=== PATIENT | female | born 2000 | race Caucasian/White ===

== ENCOUNTER 2020-10-10 13:13 | Emergency (ER) | payer OTHER, SELFPAY ==
--- NOTE | ~2020-10-10 | XR_ITS ---
EXAMINATION: XR chest 2V 10/10/2020 14:05 INDICATION: Congestion and wheezing PROCEDURE: 2 view chest COMPARISON: 03/25/2020 FINDINGS: The lungs are clear. The cardiomediastinal silhouette is within normal limits. There are no pleural effusions. There is no pneumothorax suspected. IMPRESSION: 1: NO ACUTE CARDIOPULMONARY DISEASE. Reviewed, dictated and finalized at location A.
[2020-10-10 13:21] VITALS: BP 111/81; PULSE 110; RESP 18; TEMP 37.5; O2SAT 98
--- NOTE | 2020-10-10 19:20 | ED.URI ---
HPI - URI/Sore Throat General Chief Complaint: Upper Respiratory Infection Stated Complaint: Congestion Time Seen by Provider: 10/10/20 13:33 Source: patient and RN notes reviewed Mode of arrival: ambulatory Limitations: no limitations History of Present Illness HPI Narrative: Patient presents today complaining of 2 to 3-day history of productive cough, shortness of breath, congestion, rhinorrhea. Fever up to 101 since last night. Denies sore throat, nausea, vomiting, diarrhea. Son was diagnosed with RSV 3 days ago. She has been taking DayQuil and NyQuil with mild relief. She has not been vaccinated against COVID-19. MD elicited complaint: cough Related Data Home Medications Medication Instructions Recorded Confirmed PNV cmb#95-ferrous fumarate-FA 1 tablet PO DAILY 01/17/19 01/31/19 [] albuterol sulfate [ProAir HFA] INHALATION 03/15/19 norethindrone-e.estradiol-iron tablet 03/15/19 [Brando Fe 03/25 (28)] Allergies Allergy/AdvReac Type Severity Reaction Status Date / Time No Known Allergies Allergy Verified 10/10/20 13:37 Review of Systems Review of Systems: CONSTITUTIONAL: Denies body aches, chills, or sweats.+ Fever EYES: Denies visual changes, redness, or discharge. ENT: Denies otalgia.+ Rhinorrhea, congestion CARDIOVASCULAR: Denies chest pain, palpitations, or edema. RESPIRATORY: + Cough, shortness of breath GASTROINTESTINAL: Denies abdominal pain, nausea, vomiting, or diarrhea. GENITOURINARY: Denies dysuria or hematuria. SKIN: Denies rash, itching, or wounds. MUSCULOSKELETAL: Denies back pain, joint pain, or myalgia. NEUROLOGIC: Denies headache, numbness, tingling, or weakness. PSYCH: Denies depression or anxiety. [facility] Surgical History Surgical History History of tonsillectomy Family History Family History Mother Hypothyroid Social History Social History Smoking status: Never smoker Second hand tobacco smoke exposure: No Substance use: never Gender identity (if verbalized by the patient): Female Spiritual care concerns: No Comments At time of signature, I have reviewed and agree with nursing past medical, surgical, social and family history unless otherwise noted. Please see nursing chart for further information. There is no relevant family history pertinent to the presenting complaint Exam Narrative: GENERAL: Well-appearing, well-nourished, and in no acute distress. HEAD: Normocephalic, atraumatic. EYES: EOMI. No redness or drainage. Conjunctivae normal. ENT: Mucous membranes pink and moist. Nares congested with copious clear drainage. TMs normal bilaterally. Throat normal. Uvula midline. NECK: Normal AROM. Supple. No lymphadenopathy. CHEST: No respiratory distress. Expiratory wheezing throughout HEART: Regular rate and rhythm. No murmur appreciated. Normal peripheral pulses. EXTREMITIES: Normal range of motion. No edema. SKIN: Warm, dry, no rash. Capillary refill normal. Normal skin turgor. NEURO: No focal deficits. Alert and oriented x3. Gait steady. PSYCH: Normal affect. No signs of depression or anxiety. Course Vital Signs Vital signs: Vital Signs Temperature 99.5 F 10/10/20 13:21 Pulse Rate 110 H 10/10/20 13:21 Respiratory Rate 18 10/10/20 13:21 Blood Pressure 111/81 10/10/20 13:21 Pulse Oximetry 98 10/10/20 13:21 Temperature 99.5 F 10/10/20 13:21 Pulse Rate 110 H 10/10/20 13:21 Respiratory Rate 18 10/10/20 13:21 Blood Pressure 111/81 10/10/20 13:21 Pulse Oximetry 98 10/10/20 13:21 Reviewed. Pt has been instructed to follow up with her PCP regarding her elevated blood pressure today. MDM - URI/Sore Throat Differential Diagnosis Differential diagnosis: Likely upper respiratory infection, sinusitis, viral infection, bronchitis,
== END 2020-10-10 14:21 | disposition home or self-care (01) ==
PROVIDERS: Emergency Provider Nurse Practitioner; PCP Physician Assistant
DX: R09.89 Other specified symptoms and signs involving the circulatory and respiratory systems (principal); B97.4 Respiratory syncytial virus as the cause of diseases classified elsewhere; Z20.822 Contact with and (suspected) exposure to COVID-19
CPT/HCPCS: 71046; 87426; 99213; C9803; G0463

== ENCOUNTER 2020-11-12 11:06 | Emergency (ER) | payer OTHER, SELFPAY ==
--- NOTE | ~2020-11-12 | XR_ITS ---
EXAMINATION: XR chest 2V EXAM DATE: 11/12/2020 11:59 INDICATION: Shortness of breath and wheezing. TECHNIQUE: Frontal and lateral projections of the chest obtained and reviewed. Comparison is made to prior examination from 10/10/2020. FINDINGS: Interval development of subsegmental left lower lobe atelectasis or pneumonia. The lungs a re otherwise clear. There are no pleural effusions. The cardiomediastinal silhouette is within norm al limits. There is no pneumothorax suspected. The bones and soft tissues are unremarkable. IMPRESSION: Subsegmental left lower lobe atelectasis or pneumonia. Reviewed, dictated and finalized at location A.
[2020-11-12 11:19] VITALS: BP 137/82; PULSE 125; RESP 18; TEMP 36.4; O2SAT 100
--- NOTE | 2020-11-12 12:01 | ED.GENADULT ---
HPI - General Adult General Chief complaint: Shortness of Breath/Dyspnea Stated complaint: Difficulty Breathing Time Seen by Provider: 11/12/20 11:28 Source: patient History of Present Illness HPI narrative: Patient is a 20 y/o female complaining of severe SOB starting 2 days ago. There is no alleviating or exacerbating factor. She has some cough with white phlegm. She has no fever or chest pain. She has not had COVID vaccine. Related Data Home Medications Medication Instructions Recorded Confirmed PNV cmb#95-ferrous fumarate-FA 1 tablet PO DAILY 01/17/19 01/31/19 [] albuterol sulfate [ProAir HFA] INHALATION 03/15/19 norethindrone-e.estradiol-iron tablet 03/15/19 [Brando Fe 03/25 (28)] Allergies Allergy/AdvReac Type Severity Reaction Status Date / Time No Known Allergies Allergy Verified 11/12/20 11:16 Review of Systems Constitutional: Constitutional: Denies chills, Denies fever(s), Denies headache(s) and Denies weakness Eyes: Eyes: Denies blurry vision ENT: Denies headache(s) and Denies neck pain Cardiovascular: Cardiovascular: Denies chest pain and Reports dyspnea Respiratory: Respiratory: Reports cough and Reports dyspnea Gastrointestinal: Gastrointestinal: Denies abdominal pain, Denies diarrhea, Denies nausea and Denies vomiting Genitourinary: Genitourinary: Denies hematuria and Denies dysuria Musculoskeletal: Musculoskeletal: Denies back pain and Denies neck pain Neurologic: Denies headache(s) and Denies weakness [facility] Surgical History Surgical History History of tonsillectomy Family History Family History Mother Hypothyroid Social History Social History Smoking status: Never smoker Second hand tobacco smoke exposure: No Substance use: never Gender identity (if verbalized by the patient): Female Spiritual care concerns: No Exam Const: General: no acute distress and well developed Orientation/consciousness: oriented to person, oriented to place, oriented to time and patient oriented x3 HENMT: Head: normocephalic Ears: external ears normal General nose exam: Normal external nose present Eyes: General: appearance normal, both eyes and all related structures Conjunctivae: conjunctivae normal Neck: Neck: normal visual inspection and full ROM Chest: Chest palpation & inspection: normal inspection of the chest and no tenderness Resp: Effort & Inspection: normal respiratory effort Auscultation: wheezes Cardio: Rate: regular rate Rhythm: regular rhythm GI: GI Palp: No abdominal tenderness and Yes Soft to palpation Skin: General skin exam: normal color and turgor normal Neuro: General: oriented to person, oriented to place, oriented to time and patient oriented x3 Cognition (Neuro): normal cognition Extrem: General: normal to inspection, full ROM and no pedal edema Psych: Appearance: grossly normal Mental Status: mental status grossly normal Affect: normal affect Course Vital Signs Vital signs: Vital Signs Temperature 36.4 C L 11/12/20 11:19 Pulse Rate 125 H 11/12/20 11:19 Respiratory Rate 18 11/12/20 11:19 Blood Pressure 137/82 11/12/20 11:19 Pulse Oximetry 100 11/12/20 11:19 Temperature 36.4 C L 11/12/20 11:19 Pulse Rate 109 H 11/12/20 14:56 Respiratory Rate 16 11/12/20 14:56 Blood Pressure 114/80 11/12/20 14:56 Pulse Oximetry 96 11/12/20 14:56 Medical Decision Making Vital Signs Vital Signs: Vital Signs Temperature 36.4 C L 11/12/20 11:19 Pulse Rate 125 H 11/12/20 11:19 Respiratory Rate 18 11/12/20 11:19 Blood Pressure 137/82 11/12/20 11:19 Pulse Oximetry 100 11/12/20 11:19 Temperature 36.4 C L 11/12/20 11:19 Pulse Rate 109 H 11/12/20 14:56 Respiratory Rate 16 11/12/20 14:56 Blood Pressure 114/80 11/12/20 14:56 Pulse
[2020-11-12 12:09] LABS: Basophils Absolute Auto 0.1 K/mm3 (0.0-0.1); Basophils Percent Auto 0.7 % (0.2-1.2); Eosinophils Percent Auto 9.2 % (0-4.4); Hematocrit 43.3 % (37.0-47.0); Hemoglobin 14.5 g/dL (12.0-15.0); Immature Granulocyte Absolute 0.03 K/mm3 (0.00-0.031); Immature Granulocyte Percent A 0.3 % (0-0.5); Lymphocytes Absolute Auto 2.48 K/mm3 (0.9-3.2); Lymphocytes Percent Auto 23.4 % (18.3-44.2); Mean Corpuscular HGB Conc 33.5 g/dl (32-36); Mean Corpuscular Volume 92.5 fl (80-100); Mean Platelet Volume 10.9 fl (7.4-10.4); Monocytes Absolute Auto 0.6 K/mm3 (0.1-0.6); Monocytes Percent Auto 5.2 % (2.6-8.5); Neutrophils Absolute Auto 6.5 K/mm3 (1.3-6.7); Neutrophils Percent Auto 61.2 % (45.5-73.1); Platelet Count Result 218 k/mm3 (150-375); Red Blood Count 4.68 M/mm3 (4.2-5.4); Red Cell Distribution Width 12.8 % (11.5-14.5); White Blood Count 10.6 K/mm3 (4.5-10.0)
[2020-11-12 12:14] VITALS: PULSE 102; RESP 20
[2020-11-12] MEDS: ALBUTEROL SULFATE NEB 2.5 MG/0.5 ML INH 5 MG INHALATION (12:14)
[2020-11-12] MEDS: IPRATROPIUM BR 0.02% INH SOLN 0.5 MG/2.5 ML VIAL INHALATION (12:14)
[2020-11-12 12:20] LABS: Alanine Aminotransferase 15 U/L (4-35); Albumin Level 4.2 g/dL (3.5-5.1); Alkaline Phosphatase 95 U/L (38-126); Anion Gap 8 mmol/L (8-16); Aspartate Amino Transferase 20 U/L (14-36); Bilirubin,Total 0.3 mg/dL (0.2-1.3); Blood Urea Nitrogen 7 mg/dL (7-17); Calcium 9.1 mg/dL (8.4-10.2); Carbon Dioxide 25 mmol/L (22-30); Chloride 104 mmol/L (98-107); Estimated CRCL calculation 99 ml/min; Estimated Glomerular Filt Rate > 60; Glucose 99 mg/dL (65-110); Potassium 3.5 mmol/L (3.4-5.0); Sodium 137 mmol/L (137-145)
[2020-11-12 12:23] VITALS: PULSE 114; RESP 20
[2020-11-12 12:35] LABS: EDCOVIDSCREEN Negative (Negative)
--- NOTE | 2020-11-12 12:40 | ECG_ITS ---
Measurements Intervals [place] Rate: 106 P: 26 ND: 142 QRS: 29 QRSD: 76 T: -9 QT: 323 QTc: 430 Interpretive Statements SINUS TACHYCARDIA BORDERLINE ST-T WAVE ABNORMALITY- ANT/INF LEADS BASELINE ARTIFACT- I, III, AVR, AVL, AVF, V2 ABNORMAL ECG Electronically Signed On 11-12-2020 13:04:28 CDT by Hawk Zamora D.O.
[2020-11-12] MEDS: predniSONE 20 MG TABLET 40 MG PO (13:07)
[2020-11-12 13:56] LABS: Add Urine Microscopic? YES; Appearance Urine Cloudy (Clear); Bacteria Urine 3+ /hpf; Bilirubin Urine Negative (Negative); Blood Urine Negative (Negative); Color Urine Yellow (Yellow); Glucose Urine UA Negative (Negative); Ketones Urine Trace mg/dL (Negative); Leukocyte Esterase Ur 2+ LEU/UL (Negative); Mucus Urine Heavy /lpf; Nitrate Urine Negative (Negative); Protein Urine 1+ mg/dL (Negative); Specific Grav Ur 1.023 (1.001-1.035); Squamous Epithelial Cell Urine Many /hpf (Few); Urobilinogen Urine Negative mg/dL (<2.0)
[2020-11-12 14:56] VITALS: BP 114/80; PULSE 109; RESP 16; O2SAT 96
== END 2020-11-12 14:57 | disposition home or self-care (01) ==
PROVIDERS: Emergency Provider Emergency Medicine; PCP Physician Assistant
DX: J16.8 Pneumonia due to other specified infectious organisms (principal); J45.901 Unspecified asthma with (acute) exacerbation; Z20.822 Contact with and (suspected) exposure to COVID-19; R00.0 Tachycardia, unspecified; R94.31 Abnormal electrocardiogram [ECG] [EKG]
CPT/HCPCS: 36415; 71046; 80053; 81001; 81025; 85025; 87086; 87426; 93005; 94640; 99283; C9803; J7512

== ENCOUNTER 2021-01-13 08:39 | Emergency (ER) | payer OTHER, SELFPAY ==
--- NOTE | ~2021-01-13 | XR_ITS ---
EXAMINATION: XR chest 2V DATE: 01/13/2021 09:08 INDICATION: Dyspnea. Asthma. TECHNIQUE: Frontal and lateral views of the chest were obtained. COMPARISON: Chest 2 views 11/12/2020 FINDINGS: The chest demonstrates clear lungs without pneumonia, pleural effusion, or pneumothorax. Th e heart size is normal. IMPRESSION: 1. No acute cardiopulmonary disease. Reviewed, dictated and finalized at location A. UNICATION ELECTRONIC TECHNICIAN
[2021-01-13 08:48] VITALS: BP 120/82; PULSE 94; RESP 16; TEMP 36.8; O2SAT 100
--- NOTE | 2021-01-13 09:33 | ED.ASTHMA ---
HPI - Asthma General Chief Complaint: Asthma <Spring Martinez PA-C - Last Filed: 01/13/21 10:43> Stated Complaint: asthma issues <IGOR Oconnor Last Filed: 01/13/21 10:43> Time Seen by Provider: 01/13/21 09:07 <Spring Martinez PA-C - Last Filed: 01/13/21 10:43> Source: patient <IGOR Oconnor Last Filed: 01/13/21 10:43> Mode of arrival: ambulatory <IGOR Oconnor Last Filed: 01/13/21 10:43> Limitations: no limitations <IGOR Oconnor Last Filed: 01/13/21 10:43> History of Present Illness HPI Narrative: This is a 20-year-old female that presents to the emergency department for wheezing and shortness of breath worsening over the last couple of days. Patient reports she recently had a viral upper respiratory infection. She has been having to use her albuterol inhaler much more often. She also ran out of her Singulair and has just restarted herself on that in the last day or two. Denies fever or chest pain. <Spring Martinez PA-C - Last Filed: 01/13/21 10:43> Related Data Home Medications: Home Medications Medication Instructions Recorded Confirmed PNV cmb#95-ferrous fumarate-FA 1 tablet PO DAILY 01/17/19 01/31/19 [] albuterol sulfate [ProAir HFA] INHALATION 03/15/19 norethindrone-e.estradiol-iron tablet 03/15/19 [Brando Fe 03/25 ()] <Spring Martinez PA-C - Last Filed: 01/13/21 10:43> Allergies/Adverse Reactions: Allergies Allergy/AdvReac Type Severity Reaction Status Date / Time No Known Allergies Allergy Verified 01/13/21 08:51 <IGOR Oconnor Last Filed: 01/13/21 10:43> Review of Systems Review of Systems: CONSTITUTIONAL: Denies fever CARDIOVASCULAR: Denies chest pain, or edema. RESPIRATORY: Reports dyspnea. <Spring Martinez PA-C - Last Filed: 01/13/21 10:43> All systems reviewed & are unremarkable except as noted in HPI and below <Spring Martinez PA-C - Last Filed: 01/13/21 10:43> PMFSH Past Medical History Medical History: Medical History (Updated 01/13/21 @ 10:41 by Spring Martinez PA-C) History of asthma <Spring Martinez PA-C - Last Filed: 01/13/21 10:43> Surgical History Surgical History: Surgical History History of tonsillectomy <Spring Martinez PA-C - Last Filed: 01/13/21 10:43> Family History Family History: Family History Mother Hypothyroid <Spring Martinez PA-C - Last Filed: 01/13/21 10:43> Social History Social History: Social History Smoking status: Never smoker Second hand tobacco smoke exposure: No Substance use: never Gender identity (if verbalized by the patient): Female Spiritual care concerns: No <Spring Martinez PA-C - Last Filed: 01/13/21 10:43> Exam Narrative: GENERAL: Well-appearing, well-nourished, and in no acute distress. HEAD: Normocephalic, atraumatic. EYES: EOMI. ENT: Nares clear, no rhinorrhea or epistaxis. Mucous membranes moist. Oropharynx without tonsillar hypertrophy exudate or other lesions. Bilateral TMs pearly levy non-bulging NECK: Supple. No adenopathy or masses. CHEST: No respiratory distress. Mild scattered wheezes. No rales or rhonchi HEART: Regular rate and rhythm. No murmur heard. Normal peripheral pulses. EXTREMITIES: Normal range of motion. No edema. SKIN: Warm, dry, no rash. NEURO: No focal deficits. Alert and oriented x3. 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 I was available for evaluation and consultation, I agree with the documentation as above <Jorge Luis Rosales MD - Last Filed: 01/13/21 16:49> Vital Signs Vital signs: Vital Signs Temperature 36.8 C 01/04
[2021-01-13] MEDS: ALBUTEROL SULFATE (*SP) AEROSOL 1 PUFF 2 PUFF INHALATION (09:42)
[2021-01-13] MEDS: predniSONE 20 MG TABLET 40 MG PO (10:58)
[2021-01-13 11:02] VITALS: BP 111/75; PULSE 78; RESP 16; O2SAT 99
== END 2021-01-13 11:03 | disposition home or self-care (01) ==
PROVIDERS: Emergency Provider Emergency Medicine; PCP Physician Assistant
DX: J45.901 Unspecified asthma with (acute) exacerbation (principal)
CPT/HCPCS: 71046; 94640; 99283; A9270; J7512

== ENCOUNTER 2024-08-06 07:34 | Emergency (ER) | payer OTHER, SELFPAY ==
--- NOTE | ~2024-08-06 | CT_ITS ---
Noncontrast CT scan of the cervical spine Technique: Multiple contiguous axial [address] images of the cervical spine were obtained and rec onstructed in 2D sagittal and coronal planes on the acquisition scanner. Dose reduction technique was used on this scan by utilizing automated exposure control, adjustment of the mA and/or kV according to patient size. The dose-length product (DLP) was 126.41 mGy-cm. Clinical History: Right shoulder radiculopathy Findings: No fractures or dislocations. There is minimal reversal the normal cervical lordosis. Osse ous structures otherwise are unremarkable. The intervertebral disc spaces are preserved. No preverte bral soft tissue swelling. Impression: No fracture or subluxation of the cervical spine. No definite significant disc bulge or herniation seen. Consider follow-up MR to better evaluate for d iscogenic disease. Reviewed, dictated and finalized at [facility]. Impression: No fracture or subluxation of the cervical spine. No definite significant disc bulge or herniation seen. Consider follow-up MR to better evaluate for discogenic disease.
--- OUTSIDE RECORDS SUMMARY | 2024-08-06 07:36 | XMS_ITS | Referral Summary ---
Author Organization [facility] Address [facility] [place] [address] Care Team Providers Care Rfid Analyst Name Role Phone Madeleine Montano NP Primary Care Provider [phone] Allergies Active Allergy Reactions Criticality Noted Date Comments Grass Pollen Unknown 09/18/2013 Mite Extract Unknown 09/18/2013 Medications fexofenadine (HIRA) 180 mg tablet Take 1 tablet (180 mg total) by mouth 12/24/19 17 Active ibuprofen (ADVIL,MOTRIN) 600 mg tablet Take 1 tablet (600 mg total) by mouth as needed 10/03/19 18 Active albuterol 2.5 mg /3 mL (0.083 %) nebulizer solution Take 3 mL (2.5 mg total) by nebulization 4 (four) times a day as needed for wheezing or shortness of breath 3 mL 11 02/02/20 21 Active magnesium oxide 500 mg capsuleIndication s:Palpitations Take 500 mg by mouth daily 90 capsule 1 02/24/20 22 Active albuterol HFA (PROVENTIL HFA,VENTOLIN HFA,PROAIR HFA) 90 mcg/actuation inhalerIndication s:Mild intermittent asthma without complication Inhale 2 puffs every 6 (six) hours as needed for wheezing 3 each 4 11/17/19 23 Active budesonide-formot Aung (SYMBICORT) 80-4.5 mcg/actuation inhalerIndication s:Exacerbation of intermittent asthma, unspecified asthma severity Inhale 2 puffs 2 (two) times a day Rinse mouth with water after use. Do not swallow. 3 each 2 05/16/19 24 Active fluticasone propionate (FLONASE) 50 mcg/actuation nasal sprayIndications: Seasonal allergies SPRAY 2 SPRAYS INTO EACH NOSTRIL EVERY DAY 16 mL 2 05/29/19 24 Active Nortrel 0.5/35, 28, 0.5-35 mg-mcg per tabletIndications :Encounter for surveillance of contraceptive pills TAKE 1 TABLET BY MOUTH EVERY DAY 84 tablet 4 07/28/19 24 Active Additional Information Patient not taking.Reported on 11/16/2023 escitalopram (LEXAPRO) 10 mg tabletIndications :Anxiety TAKE 1 TABLET BY MOUTH EVERY DAY 30 tablet 2 02/14/20 24 Active montelukast (SINGULAIR) 10 mg tabletIndications :Seasonal allergies,Moderat e persistent asthma without complication TAKE 1 TABLET BY MOUTH EVERY DAY AT NIGHT 30 tablet 5 05/09/19 25 Active omeprazole (PriLOSEC) 20 mg capsuleIndication s:Gastroesophagea l reflux disease with esophagitis without hemorrhage TAKE 1 CAPSULE BY MOUTH EVERY DAY 30 capsule 5 07/06/19 25 Active Active Problems Problem Noted Date Diagnosed Date Gastroesophageal reflux dise ase with esophagitis without hemorrhage 08/03/2023 Palpitations 03/13/2023 Syncope and collapse 03/13/2023 Orthostatic hypotension 03/13/2023 Mild intermittent asthma without complication Encounter for surveillance of contraceptive pill s 04/13/2022 Screening for cholesterol level 09/29/2021 Assessment & Plan (09/29/2021 8:42 PM CDT): She will finish the current pack. When she has finished, we will change to a decreased dose of norethindrone. We will evaluate further with labs, will notify her of results as they become available. BMI 24.0-24.9, adult 09/29/2021 Assessment & Plan (11/16/2023 3:29 PM CDT): Weight/BMI is in healthy range. Continue healthy lifestyle to maintain. Weight loss 09/29/2021 Assessment & Plan (09/29/2021 8:41 PM CDT): Will evaluate further with labs, will notify her of results as they become available Postural dizziness with near syncope 09/29/2021 Assessment & Plan (09/29/2021 8:43 PM CDT): She was advised to follow up with cardiology regarding concerns. Dermatitis 09/29/2021 Assessment & Plan (09/29/2021 8:42 PM CDT): She will use hydrocortisone cream bid x 5d Boil of buttock 09/29/2021 Assessment & Plan (09/29/2021 8:42 PM CDT): Advised not picking at lesion. Advised neosporin hayder bid x 5d. Irregular menses 05/12/2021 Assessment & Plan (09/29/2021 8:42 PM CDT): She will finish the current pack. When she has finished, we will change to a decreased dose of norethindrone. We will evaluate further with labs, will notify her of results as they become available. Assessment & Plan (05/12/2021 5:09 PM APPLICATIONS ARCHITECT): Discussed potential etiologies - advised labs including hcg and thyroid levels. She declines at this time. She will start monitoring menstrual cycle and let us/analytical sciences director know if occurs again. Wheezing 11/13/2020 Assessment & Plan (11/13/2020 12:43 PM CDT): She was advised given severity of symptoms to report to the er for further evaluation and treatment Exacerbation of intermittent asthma 10/12/2020 Assessment & Plan (10/27/2021 2:17 PM CDT): Stable, continue medication the same at this time and refill as needed. Assessment & Plan (05/12/2021 5:08 PM APPLICATIONS ARCHITECT): Stable, continue meds same and refill as needed Assessment & Plan (02/01/2021 4:46 PM APPLICATIONS ARCHITECT): Will refer to pulmonology for further evaluation and treatment. She will continue with as needed albuterol hfa and prn nebulizer treatments. She will also be started on Symbicort b.i.d.. Assessment & Plan (10/12/2020 4:36 PM CDT): Will start on doxycycline and medrol dose pack She will continue with nebulizers q6h prn wheezing/cough She will report to the er if symptoms worsen She will be in contact with the office in the next 72h if no improvement in symptoms Anxiety 05/08/2020 Assessment & Plan (10/27/2021 2:17 PM CDT): Stable, continue medication the same at this time and refill as needed. Assessment & Plan (05/12/2021 5:08 PM APPLICATIONS ARCHITECT): Stable, continue meds same and refill as needed Assessment & Plan (06/08/2020 5:21 PM CDT): Continue medication at this time. Condition is stable. Assessment & Plan (05/08/2020 11:50 AM APPLICATIONS ARCHITECT): Will start on lexapro daily. Advised not stopping abruptly. Makes pact to report to er if having s/h ideations. Has employee counseling at [employer] [place] - will pursue. Advised her to contact police if being threatened or in dangerous situation. Fatigue 03/31/2020 Assessment & Plan (03/31/2020 3:06 PM APPLICATIONS ARCHITECT): Will evaluate further with labs, will notify of results as available Tachycardia 03/31/2020 Assessment & Plan (06/08/2020 5:22 PM CDT): She will complete testing as ordered by giver. Assessment & Plan (05/08/2020 11:50 AM APPLICATIONS ARCHITECT): We reviewed holter monitor, discussed beta alphonso pending response to anxiety treatment. Will keep appt with cardiology as planned. Assessment & Plan (03/31/2020 3:05 PM APPLICATIONS ARCHITECT): Will evaluate with labs and holter monitor. Will notify her of results as available. Hemorrhoids 03/31/2020 Assessment & Plan (03/31/2020 3:06 PM APPLICATIONS ARCHITECT): Will refer to gi to discuss surgical treatment Breast lump in female 04/15/2019 Abnormal findings on diagnostic imaging of breas t 04/15/2019 Laceration of perineum in female 02/01/2019 Migraine 10/11/2017 Seasonal allergies 02/17/2016 Assessment & Plan (10/27/2021 2:17 PM CDT): Stable, continue medication the same at this time and refill as needed. Assessment & Plan (03/31/2020 3:06 PM APPLICATIONS ARCHITECT): Will use flonase, hira, and add singulair daily. Resolved Problems Problem Noted Date Diagnosed Date Resolved Date Sore throat 12/30/2020 02/01/2021 Assessment & Plan (12/30/2020 12:11 PM CDT): Discussed patient's symptoms. They sound viral. Offered to retest COVID with nasopharyngeal test. she declined. offered strep test to rule out strep throat. She declined. She requests a letter stating that she was seen today. Encouraged supportive care. Push fluids. Rest. Reviewed that most viral conditions may have sxs that last for 10-14 days. If sxs worsen or don\'t fully resolve, pt is to followup in the office. Sinus congestion 11/13/2020 02/01/2021 Assessment & Plan (11/13/2020 12:43 PM CDT): She was advised given severity of symptoms to report to the er for further evaluation and treatment BMI 25.0-25.9,adult 10/20/2020 09/30/19 22 Assessment & Plan (10/20/2020 4:15 PM CDT): Weight/BMI is in healthy range. Continue healthy lifestyle to maintain. Left ear pain 10/20/2020 02/01/2021 Assessment & Plan (10/20/2020 6:42 PM CDT): Advised increased fluids, rest Advised flonase daily x 7 days Advised f/u in 1w if not improving, sooner if worsening Acute cystitis with hematuria 08/14/2020 02/01/2021 Assessment & Plan (08/14/2020 11:36 AM CDT): Will culture urine Advised increased fluids, rest Advised f/u in 1w if not improving, sooner if worsening STD exposure 08/14/2020 02/01/2021 Assessment & Plan (08/14/2020 11:37 AM CDT): She will go to [facility] today for labs. Will notify her of results as available. BMI 25.0-25.9,adult 06/25/2020 10/21/19 Assessment & Plan (08/14/2020 10:48 AM CDT): Weight/BMI is in healthy range. Continue healthy lifestyle to maintain. Assessment & Plan (06/25/2020 8:02 AM CDT): Weight/BMI is in healthy range. Continue healthy lifestyle to maintain. BMI 27.0-27.9,adult 06/08/2020 06/26/19 Assessment & Plan (06/08/2020 4:02 PM CDT): Weight/BMI is in healthy range. Continue healthy lifestyle to maintain. Complication of right ear piercing 06/08/2020 02/01/2021 Assessment & Plan (06/25/2020 8:39 AM CDT): Advised on wound care Will give zpack x 5 days Advised f/u in next week if not improving, sooner if worsening Assessment & Plan (06/08/2020 5:21 PM CDT): Will start on Keflex for the next 10 days. She was advised to eat when taking it as it may cause GI upset. She was advised to follow-up the next week if not improving, sooner if worsening. She is advised to wash it twice a day with warm water and peroxide. BMI 28.0-28.9,adult 03/31/2020 06/09/19 Assessment & Plan (05/08/2020 11:07 AM APPLICATIONS ARCHITECT): Weight/BMI is in healthy range. Continue healthy lifestyle to maintain. Encounter to establish care 03/31/2020 02/01/2021 Assessment & Plan (03/31/2020 3:05 PM APPLICATIONS ARCHITECT): Labs entered, will notify of results as available Thyromegaly 03/31/2020 05/08/2020 Assessment & Plan (03/31/2020 3:05 PM APPLICATIONS ARCHITECT): Will evaluate with labs and thyroid US Immunizations Immunization Administration Dates Next Due DTaP / IPV 07/14/2004, 1,1999,09/08 DTaP, Unspecified 07/14/2004, 1,01/12/2000,11/16,1999 Hep B Vaccine 11/01/2000,1999,1999 Hib (PRP-OMP) 11/01/2000,1999,1999 Influenza, Quadrivalent, Spl it, Preservative Free, Intramuscular 12/27/2018 Influenza, Unspecified 05/16/2023(Deferr ed: Patient Refused),03/06/2023(Deferred: Patient Refused),03/06/2023(Deferred: Patient Refused),04/13/2022(Deferred: Patient Refused),03/06/2022(Deferred: Patient Refused),04/06/2021(Deferred: Patient Refused),12/05/2019(Deferred: Patient Refused) MMRV 07/26/2006,07/14/2004 Pneumococcal Polysaccharide PPV23 11/01/2006,,1999 Tdap 12/27/2018 Varicella 07/26/2006 Social History Tobacco Use Types Packs/Day Years Used Date Smoking Tobacco: Never Smokeless Tobacco: Never Tobacco Cessation:Counseling Given: Not Answered Alcohol Use Standard Drinks/Week Comments Never 0 (1 standard drink = 0.6 oz pur e alcohol) AUDIT-C Answer Date Recorded Q1: How often do you have a drink containing alc ohol? 2-4 times a month 04/13/2022 Q2: How many drinks containi ng alcohol do you have on a typical day when you are drinking? 1 or 2 04/13/2022 Q3: How often do you have si x or more drinks on one occasion? Never 04/13/2022 PHQ-2 Answer Date Recorded PHQ-2 Total Score (If total score is 3 or more points, staff should administer the PHQ-9) 0 11/16/2023 Personal Safety Answer Date Recorded Getting School Help Needed Not on file 02/16 Comments Unknown Sex and Gender Information Value Date Recorded Sex Assigned at Not on file Legal Sex Female 5:55 AM APPLICATIONS ARCHITECT Gender Identity Not on file Sexual Orientation Not on file 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 file Not on file Last Filed Vital Signs Vital Sign Reading Time Taken Comments Blood Pressure 110/60 11/16/2023 3:27 PM CDT Pulse 94 11/16/2023 3:27 PM CDT Temperature 36.8 C (98.3 F) 11/16/2023 3:27 PM CDT Respiratory Rate 16 04/13/2022 9:12 AM APPLICATIONS ARCHITECT Oxygen Saturation 99% 11/16/2023 3:27 PM CDT Inhaled Oxygen Concentration - - Weight 64.4 kg (142 lb) 11/16/2023 3:27 PM CDT Height 162.6 cm (5' 4) 11/16/2023 3:27 PM CDT Body Mass Index 24.37 11/16/2023 3:27 PM CDT Plan of Treatment Not on file Procedures Procedure Name Priority Date/Time Associated Diagnosis Comments HEPATITIS C ANTIBODY Routine 08/14/2020 11:33 AM CDT STD exposure from Last 3 Months or Most Recently Relevant to Health Maintenance Results * Hepatitis C antibody (08/14/2020 11:33 AM CDT) Hep C Ab NON-REACTI VE NON-REACT BHUMIKA [facility] SIGNAL TO CUT-OFF 0.02 <1.00 [facility] Comment: HCV antibody was non-reactive. There is no laboratory evidence of HCV infection. In most cases, no further action is required. However, if recent HCV exposure is suspected, a test for HCV RNA (test code 01504) is suggested. For additional information please refer to http://education.LoginRadius/faq/YKR32j3 (This link is being provided for informational/ educational purposes only.) Blood specimen (specimen) 08/14/2020 11:33 AM CDT 08/14/2020 11:35 AM CDT Narrative [facility] - 08/17/2020 2:20 PM CDT FASTING:NO FASTING: NO us Génes[facility] MICROBIOLOGY - GENERAL ORDERABLES Final Result [facility] [address] [place] [address] from Last 3 Months or Most Recently Relevant to Health Maintenance Insurance [facility] H[facility]/PPO Address: [facility] [address] [place] [address] Care Teams Rfid Analyst Relationship Specialty Start Date End Date Madeleine Montano NP [address] [facility] [address] [place] [address] PCP - General Internal Medicine 05/16/22
--- OUTSIDE RECORDS SUMMARY | 2024-08-06 07:36 | XMS_ITS | Encounter Summary ---
Author Organization [employer] Address [address] [place] [address] Care Team Providers Care Supervisor Beater Room Name Role Phone Kain Uribe MD Primary Care Provider Unavailab le Encounter Details Date Type Department Care Team (Latest Contact Info) Description 12/18/2000 Outpatient Historical [facility] Zane Hopper MD [address] [place] [id number] Unspecified otitis media (Primary Dx) Social History Tobacco Use Types Packs/Day Years Used Date Smoking Tobacco: Never Assessed Comments Unknown Sex and Gender Information Value Date Recorded Sex Assigned at Not on file Legal Sex Female 4:11 AM REGISTERED NURSE FETAL Gender Identity Not on file Sexual Orientation Not on file documented as of this encounter Plan of Treatment Not on file documented as of this encounter Visit Diagnoses Diagnosis Unspecified otitis media- Primary documented in this encounter Care Teams Supervisor Beater Room Relationship Specialty Start Date End Date Kain Uribe MD PCP - General 07/28/16 documented as of this encounter
--- OUTSIDE RECORDS SUMMARY | 2024-08-06 07:36 | XMS_ITS | Clinical Summary ---
Author Organization [facility] Address [facility] [place] [address] Care Team Providers Care Electronic Service Technician Name Role Phone Madeleine Montano NP Primary Care Provider [phone] Allergies Active Allergy Reactions Criticality Noted Date [...] available. Assessment & Plan (05/12/2021 5:09 PM EXCAVATING CONTRACTOR): Discussed potential etiologies - advised labs including hcg and thyroid levels. She declines at this time. She will start monitoring menstrual cycle and let us/marketing instructor know if occurs again. Wheezing 11/13/2020 Assessment & Plan (11/13/2020 12:43 PM CDT): She was advised given severity of symptoms to report to the er for further evaluation and treatment Exacerbation of intermittent asthma 10/12/2020 Assessment & Plan (10/27/2021 2:17 PM CDT): Stable, continue medication the same at this time and refill as needed. Assessment & Plan (05/12/2021 5:08 PM EXCAVATING CONTRACTOR): Stable, continue meds same and refill as needed Assessment & Plan (02/01/2021 4:46 PM EXCAVATING CONTRACTOR): Will refer to pulmonology for further evaluation [...] needed. Assessment & Plan (05/12/2021 5:08 PM EXCAVATING CONTRACTOR): Stable, continue meds same and refill as needed Assessment & Plan (06/08/2020 5:21 PM CDT): Continue medication at this time. Condition is stable. Assessment & Plan (05/08/2020 11:50 AM EXCAVATING CONTRACTOR): Will start on lexapro daily. Advised not stopping abruptly. Makes pact to report to er if having s/h ideations. Has employee counseling at [employer] [place] - will pursue. Advised her to contact police if being threatened or in dangerous situation. Fatigue 03/31/2020 Assessment & Plan (03/31/2020 3:06 PM EXCAVATING CONTRACTOR): Will evaluate further with labs, will notify of results as available Tachycardia 03/31/2020 Assessment & Plan (06/08/2020 5:22 PM CDT): She will complete testing as ordered by australian rules footballer. Assessment & Plan (05/08/2020 11:50 AM EXCAVATING CONTRACTOR): We reviewed holter monitor, discussed beta alphonso pending response to anxiety treatment. Will keep appt with cardiology as planned. Assessment & Plan (03/31/2020 3:05 PM EXCAVATING CONTRACTOR): Will evaluate with labs and holter monitor. Will notify her of results as available. Hemorrhoids 03/31/2020 Assessment & Plan (03/31/2020 3:06 PM EXCAVATING CONTRACTOR): Will refer to gi to discuss surgical treatment Breast lump in female 04/15/2019 Abnormal findings on diagnostic imaging of breas t 04/15/2019 Laceration of perineum in female 02/01/2019 Migraine 10/11/2017 Seasonal allergies 02/17/2016 Assessment & Plan (10/27/2021 2:17 PM CDT): Stable, continue medication the same at this time and refill as needed. Assessment & Plan (03/31/2020 3:06 PM EXCAVATING CONTRACTOR): Will use flonase, hira, and add singulair [...] 11:37 AM CDT): She will go to [facility] today for labs. Will notify her of [...] 06/09/19 Assessment & Plan (05/08/2020 11:07 AM EXCAVATING CONTRACTOR): Weight/BMI is in healthy range. Continue healthy lifestyle to maintain. Encounter to establish care 03/31/2020 02/01/2021 Assessment & Plan (03/31/2020 3:05 PM EXCAVATING CONTRACTOR): Labs entered, will notify of results as available Thyromegaly 03/31/2020 05/08/2020 Assessment & Plan (03/31/2020 3:05 PM EXCAVATING CONTRACTOR): Will evaluate with labs and thyroid US [...] Polysaccharide PPV23 11/01/2006,,1999 Tdap 12/27/2018 Varicella 07/26/2006 Surgical History Surgery Date Site/Laterality Comments TONSILLECTOMY 03/06/2017 - 03/05/2018 Family History Medical History Relation Name Comments Heart disease Father Skin cancer Maternal Grandfather Breast cancer Maternal Grandmother Skin cancer Maternal Grandmother Thyroid disease Mother Thyroid cancer Mother's Brother Relation Name Status Comments Father Alive Maternal Grandfather Maternal Grandmother Mother Alive Mother's Brother Social History Tobacco Use Types Packs/Day Years [...] on file Legal Sex Female 5:55 AM EXCAVATING CONTRACTOR Gender Identity Not on file Sexual Orientation Not on file 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 file Not on file Obstetrics History Last Filed Vital Signs Vital Sign Reading Time Taken Comments Blood Pressure 110/60 11/16/2023 3:27 PM CDT Pulse 94 11/16/2023 3:27 PM CDT Temperature 36.8 C (98.3 F) 11/16/2023 3:27 PM CDT Respiratory Rate 16 04/13/2022 9:12 AM EXCAVATING CONTRACTOR Oxygen Saturation 99% 11/16/2023 3:27 PM CDT Inhaled Oxygen Concentration - - Weight 64.4 kg (142 lb) 11/16/2023 3:27 PM CDT Height 162.6 cm (5' 4) 11/16/2023 3:27 PM CDT Body Mass Index 24.37 11/16/2023 3:27 PM CDT Plan of Treatment Health Maintenance Due Date Last Done Comments Cervical Cancer Screening 1999 Pneumococcal vaccine <65 (2 of 2 - PCV) 11/02/2007 11/01/2006, 1999, 1999 HPV Vaccines (1 - 3-dose series) 07/10/2014 Regular Well Visit/Exam 18-64 05/15/2024, 04/13/2022, 10/27/2021 Influenza Vaccine (Season Ended) 2024 12/28/19 19 Depression Screening 11/15/2024 11/16/2023, 08/03/2023, 05/16/2023, Additional history exists DTaP/Tdap/Td Vaccine (7 - Td or Tdap) 12/27/2028 12/27/2018, 07/14/2004, 07/14/2004, Additional history exists Hepatitis B Screening Completed 11/01/2000 , 1999, 1999 Varicella Vaccines Completed 07/26/2006, 0 07/26/2006, 07/14/2004 Hepatitis C Screening Completed 08/14/2020 Procedures Procedure Name Priority Date/Time Associated Diagnosis [...] a test for HCV RNA (test code 57770) is suggested. For additional information please refer to http://education.JobConvo.FriendsEAT/faq/LBY32t6 (This link is being provided for informational/ educational purposes only.) Blood specimen (specimen) 08/14/2020 11:33 AM CDT 08/14/2020 11:35 AM CDT Narrative [facility] - 08/17/2020 2:20 PM CDT FASTING:NO FASTING: NO Génes[facility] MICROBIOLOGY - GENERAL ORDERABLES Final Result [facility] [id number] [phone] from Last 3 Months or Most Recently Relevant to Health Maintenance Insurance [facility] H[facility]/PPO Address: [facility] [address] [place] [address] Care Teams Electronic Service Technician Relationship Specialty Start Date End Date Madeleine Montano NP [address] [place] [phone] PCP - General Internal Medicine 05/16/22
--- OUTSIDE RECORDS SUMMARY | 2024-08-06 07:36 | XMS_ITS | Clinical Summary ---
Author Organization [facility] Address [address] [place] [address] Phone Care Team Providers Care Pct Name Role Phone Kain Uribe MD Primary Care Provider Unavailab le Social History Tobacco Use Types Packs/Day Years Used Date Smoking Tobacco: Never Assessed Comments Unknown Sex and Gender Information Value Date Recorded Sex Assigned at Not on file Legal Sex Female 4:11 AM COMPUTER CONSOLE OPERATOR Gender Identity Not on file Sexual Orientation Not on file Plan of Treatment Health Maintenance Due Date Last Done Comments HPV VACCINES (1 - 3-dose series) 07/10/2014 DTAP/TDAP/TD VACCINES (1 - Tdap) 07/10/2018 HEPATITIS B VACCINES (1 of 3 - 19+ 3-dose series) 09/2018 CERVICAL CANCER SCREENING 07/10/2020 HPV/Cotest (21-29) 07/10/2020 PAP SMEAR 07/10/2020 INFLUENZA VACCINE (#1) 2023 Care Teams Pct Relationship Specialty Start Date End Date Kain Uribe MD PCP - General 07/28/16
[2024-08-06 07:40] VITALS: BP 104/71; PULSE 98; RESP 18; TEMP 37.1; O2SAT 100
--- NOTE | 2024-08-06 08:09 | ED.NECK ---
HPI - Neck Pain/Injury General Chief Complaint: Neck Pain/Injury Stated Complaint: neck pain Time Seen by Provider: 08/06/24 07:46 History of Present Illness HPI Narrative: Patient presents after she tweaked her neck a few days ago, she still has pain coming down her right neck to shoulder which feels like a throbbing pain but sometimes sharp/burning. No focal numbness or weakness. Related Data Home Medications ?Medication ?Instructions ?Recorded ?Confirmed ?Last Taken ?Type vit no.95-ferrous 1 tablet PO DAILY 01/17/19 01/31/19 01/30/19 23:00 History fumarate 28 mg-folic acid 800 mcg tablet () albuterol sulfate 90 mcg/actuation inhalation 03/15/19 Unknown History aerosol inhaler (ProAir HFA) norethindrone 1 mg-ethinyl tablet 03/15/19 Unknown History estradiol 20 mcg (21)-iron 75 mg (7) tablet (Brando Fe 03/25 (28)) Allergies Allergy/AdvReac Type Severity Reaction Status Date / Time No Known Allergies Allergy Verified 08/06/24 07:42 Review of Systems Review of Systems: All systems reviewed & are unremarkable except as noted in HPI and below PMFSH Past Medical History Medical History (Updated 08/06/24 @ 08:22 by Savanna Mar MD) History of asthma Surgical History Surgical History History of tonsillectomy Family History Family History Mother Hypothyroid Social History Social History Smoking status: Never smoker Second hand tobacco smoke exposure: No Substance use: never Gender identity (if verbalized by the patient): Female Spiritual care concerns: No Exam Narrative: EXAMINATION OF ORGAN SYSTEMS/BODY AREAS: Constitutional: Vital signs per nursing GENERAL:[No acute distress, non-toxic appearing.] HEAD: Normal with no signs of head trauma. EYES: EOMI, conjunctiva normal ENT: Hearing grossly intact LUNGS: Nonlabored breathing. HEART: [Regular rate and rhythm] ABD: [Soft], [nontender to palpation] EXT: Normal range of motion SKIN: [No rashes or lesions.] NEURO: [Alert and oriented x 3. No gross focal sensory or strength deficits.] Normal strength and sensation bilateral upper extremities PSYCH: Normal affect Course Vital Signs Vital signs: Vital Signs Temperature 98.7 F 08/06/24 07:40 Pulse Rate 98 08/06/24 07:40 Respiratory Rate 18 08/06/24 07:40 Blood Pressure 104/71 08/06/24 07:40 Pulse Oximetry 100 08/06/24 07:40 Oxygen Delivery Room Air 08/06/24 07:40 Temperature 98.7 F 08/06/24 07:40 Pulse Rate 78 08/06/24 08:54 Respiratory Rate 16 08/06/24 08:54 Blood Pressure 109/72 08/06/24 08:54 Pulse Oximetry 100 08/06/24 08:54 Oxygen Delivery Room Air 08/06/24 07:40 MDM - Neck Pain/Injury MDM Narrative Medical decision making narrative: Patient presenting with neck pain, ongoing for last few days, she thinks that she tweaked her neck and has pain out to the right neck and shoulder; worse with turning her neck to the right. She has normal neurologic exam here. She is given pain medication with improvement in her symptoms, CT C-spine was unremarkable. I do feel she is stable for discharge with follow-up to her PCP and patient agreeable to this plan with prescriptions for pain medication and muscle relaxants. Discharge Plan Discharge Clinical Impression: Strain of neck muscle Patient Disposition: Home Condition: Stable Instructions: Cervical Sprain (ED) Additional Instructions: You can try the medications as prescribed, and follow up with your doctor. If your pain worsens or if you develop any new symptoms such as numbness or weakness, you can always return to the emergency room. Patient Language: Icelandic Prescriptions: New methocarbamol 750 mg tablet 750 mg PO TID PRN (Reason: muscle spasm) Qty: 30 0RF lidocaine 5 % adhesive patch,medicated 1 patch topical DAILY Qty: 15 0RF Rx Instructions: leave on most painful area for up to 12 hrs ibuprofen 600 mg tablet 600 mg PO TID PRN (Reason: fever or pain) Qty: 30 0RF No Action norethindrone-e.estradiol-iron [Brando Fe 03/25 (28)] 1 mg-20 mcg (21)/75 mg (7) tablet albuterol sulfate [ProAir HFA] 90 mcg/actuation HFA aerosol inhaler INHALATION albuterol sulfate 2.5 mg /3 mL (0.083 %) solution for nebulization 2.5 mg INHALATION Q4H PRN (Reason: shortness of breath or wheezing) Qty: 75 0RF prednisone 10 mg tablet 10 mg PO DAILY Qty: 63 0RF Rx Instructions: 60 mg x 3 days, 50 mg x 3 days, 40 mg x 3 days, 30 mg x 3 days, 20 mg x 3 days, 10 mg x 3 days. cetirizine [Zyrtec] 10 mg tablet 10 mg PO DAILY Qty: 30 0RF albuterol sulfate [ProAir HFA] 90 mcg/actuation HFA aerosol inhaler 2 puff INHALATION QID PRN (Reason: shortness of breath or wheezing) Qty: 18 0RF PNV cmb#95-ferrous fumarate-FA [] 28 mg iron- 800 mcg Tablet 1 tablet PO DAILY azithromycin [Zithromax Z-Sammy] 250 mg tablet See Rx Instructions .ROUTE .COMPLEX Qty: 6 0RF Rx Instructions: take 500 mg today (day 1), then 250 mg for 4 days (days 2-5) methylprednisolone [Medrol (Sammy)] 4 mg tablets,dose pack See Rx Instructions .ROUTE .COMPLEX Qty: 21 0RF Rx Instructions: orally per package directions prednisone 20 mg tablet 40 mg PO DAILY 4 Days Qty: 8 0RF amlodipine 5 mg tablet 5 mg PO DAILY Qty: 90 0RF Follow-up/Referrals: PHYSICIAN NOT ON STAFF,NONSTAFF [Non-Staff] -
[2024-08-06] MEDS: LIDOCAINE 5% PATCH 1 PATCH TRANSDERM (08:12)
[2024-08-06] MEDS: KETOROLAC 30 MG/ML VIAL (*BKC) IM (08:13)
--- OUTSIDE RECORDS SUMMARY | 2024-08-06 08:45 | XMS_ITS | Referral Summary ---
Author Organization [facility] Address [facility] [place] [address] Care Team Providers Care Maintainer Central Office Name Role Phone Madeleine Montano NP Primary Care Provider Allergies Active Allergy Reactions Criticality Noted Date [...] available. Assessment & Plan (05/12/2021 5:09 PM VIDEO CONTROL OPERATOR): Discussed potential etiologies - advised labs including hcg and thyroid levels. She declines at this time. She will start monitoring menstrual cycle and let us/plasterer tender know if occurs again. Wheezing 11/13/2020 Assessment & Plan (11/13/2020 12:43 PM CDT): She was advised given severity of symptoms to report to the er for further evaluation and treatment Exacerbation of intermittent asthma 10/12/2020 Assessment & Plan (10/27/2021 2:17 PM CDT): Stable, continue medication the same at this time and refill as needed. Assessment & Plan (05/12/2021 5:08 PM VIDEO CONTROL OPERATOR): Stable, continue meds same and refill as needed Assessment & Plan (02/01/2021 4:46 PM VIDEO CONTROL OPERATOR): Will refer to pulmonology for further evaluation [...] needed. Assessment & Plan (05/12/2021 5:08 PM VIDEO CONTROL OPERATOR): Stable, continue meds same and refill as needed Assessment & Plan (06/08/2020 5:21 PM CDT): Continue medication at this time. Condition is stable. Assessment & Plan (05/08/2020 11:50 AM VIDEO CONTROL OPERATOR): Will start on lexapro daily. Advised not stopping abruptly. Makes pact to report to er if having s/h ideations. Has employee counseling at [employer] - will pursue. Advised her to contact police if being threatened or in dangerous situation. Fatigue 03/31/2020 Assessment & Plan (03/31/2020 3:06 PM VIDEO CONTROL OPERATOR): Will evaluate further with labs, will notify of results as available Tachycardia 03/31/2020 Assessment & Plan (06/08/2020 5:22 PM CDT): She will complete testing as ordered by canoe inspector final. Assessment & Plan (05/08/2020 11:50 AM VIDEO CONTROL OPERATOR): We reviewed holter monitor, discussed beta alphonso pending response to anxiety treatment. Will keep appt with cardiology as planned. Assessment & Plan (03/31/2020 3:05 PM VIDEO CONTROL OPERATOR): Will evaluate with labs and holter monitor. Will notify her of results as available. Hemorrhoids 03/31/2020 Assessment & Plan (03/31/2020 3:06 PM VIDEO CONTROL OPERATOR): Will refer to gi to discuss surgical treatment Breast lump in female 04/15/2019 Abnormal findings on diagnostic imaging of breas t 04/15/2019 Laceration of perineum in female 02/01/2019 Migraine 10/11/2017 Seasonal allergies 02/17/2016 Assessment & Plan (10/27/2021 2:17 PM CDT): Stable, continue medication the same at this time and refill as needed. Assessment & Plan (03/31/2020 3:06 PM VIDEO CONTROL OPERATOR): Will use flonase, hira, and add singulair [...] 11:37 AM CDT): She will go to [facility] today for labs. Will notify her of [...] 06/09/19 Assessment & Plan (05/08/2020 11:07 AM VIDEO CONTROL OPERATOR): Weight/BMI is in healthy range. Continue healthy lifestyle to maintain. Encounter to establish care 03/31/2020 02/01/2021 Assessment & Plan (03/31/2020 3:05 PM VIDEO CONTROL OPERATOR): Labs entered, will notify of results as available Thyromegaly 03/31/2020 05/08/2020 Assessment & Plan (03/31/2020 3:05 PM VIDEO CONTROL OPERATOR): Will evaluate with labs and thyroid US [...] on file Legal Sex Female 5:55 AM VIDEO CONTROL OPERATOR Gender Identity Not on file Sexual [...] CDT Respiratory Rate 16 04/13/2022 9:12 AM VIDEO CONTROL OPERATOR Oxygen Saturation 99% 11/16/2023 3:27 PM CDT [...] a test for HCV RNA (test code 91511) is suggested. For additional information please refer to http://education.Decision Pace/faq/SCA17s4 (This link is being provided for informational/ educational purposes only.) Blood specimen (specimen) 08/14/2020 11:33 AM CDT 08/14/2020 11:35 AM CDT Narrative [facility] - 08/17/2020 2:20 PM CDT FASTING:NO FASTING: NO us [facility] MICROBIOLOG[facility] - GENERAL ORDERABLES Final Result [facility] [address] [place] [address] from Last 3 Months or Most Recently Relevant to Health Maintenance Insurance [facility] Care Teams Maintainer Central Office Relationship Specialty Start Date End Date Madeleine Montano NP [address] [facility] [address] [place] [address] PCP - General Internal Medicine 05/16/22
--- OUTSIDE RECORDS SUMMARY | 2024-08-06 08:45 | XMS_ITS | Encounter Summary ---
Author Organization [id number] Address [address] [place] [address] Care Team Providers Care Multimedia Editor Name Role Phone Kain Uribe MD Primary Care Provider Unavailab le Encounter Details Date Type Department Care Team (Latest Contact Info) Description 12/18/2000 Outpatient Historical [facility] Zane Hopper MD [address] [place] [id number] Unspecified otitis media (Primary Dx) Social History Tobacco Use Types Packs/Day Years Used Date Smoking Tobacco: Never Assessed Comments Unknown Sex and Gender Information Value Date Recorded Sex Assigned at Not on file Legal Sex Female 4:11 AM SIFTING OPERATOR Gender Identity Not on file Sexual Orientation Not on file documented as of this encounter Plan of Treatment Not on file documented as of this encounter Visit Diagnoses Diagnosis Unspecified otitis media- Primary documented in this encounter Care Teams Multimedia Editor Relationship Specialty Start Date End Date Kain Uribe MD PCP - General 07/28/16 documented as of this encounter
--- OUTSIDE RECORDS SUMMARY | 2024-08-06 08:45 | XMS_ITS | Clinical Summary ---
Author Organization [facility] Address [address] [place] [address] Phone Care Team Providers Care Flat Finisher Name Role Phone Kain Uribe MD Primary Care Provider Unavailab le Social History Tobacco Use Types Packs/Day Years Used Date Smoking Tobacco: Never Assessed Comments Unknown Sex and Gender Information Value Date Recorded Sex Assigned at Not on file Legal Sex Female 4:11 AM DEBT MANAGEMENT COUNSELOR Gender Identity Not on file Sexual Orientation Not on file Plan of Treatment Health Maintenance Due Date Last Done Comments HPV VACCINES (1 - 3-dose series) 07/10/2014 DTAP/TDAP/TD VACCINES (1 - Tdap) 07/10/2018 HEPATITIS B VACCINES (1 of 3 - 19+ 3-dose series) 09/2018 CERVICAL CANCER SCREENING 07/10/2020 HPV/Cotest (21-29) 07/10/2020 PAP SMEAR 07/10/2020 INFLUENZA VACCINE (#1) 2023 Care Teams Flat Finisher Relationship Specialty Start Date End Date Kain Uribe MD PCP - General 07/28/16
--- OUTSIDE RECORDS SUMMARY | 2024-08-06 08:45 | XMS_ITS | Clinical Summary ---
Author Organization [facility] Address [facility] [place] [address] Care Team Providers Care Linoleum Installer Name Role Phone Madeleine Montano NP Primary Care Provider [phone] Allergies Active Allergy Reactions Criticality Noted Date [...] available. Assessment & Plan (05/12/2021 5:09 PM SAND MIXER MACHINE): Discussed potential etiologies - advised labs including hcg and thyroid levels. She declines at this time. She will start monitoring menstrual cycle and let us/cross tie tram loader know if occurs again. Wheezing 11/13/2020 Assessment & Plan (11/13/2020 12:43 PM CDT): She was advised given severity of symptoms to report to the er for further evaluation and treatment Exacerbation of intermittent asthma 10/12/2020 Assessment & Plan (10/27/2021 2:17 PM CDT): Stable, continue medication the same at this time and refill as needed. Assessment & Plan (05/12/2021 5:08 PM SAND MIXER MACHINE): Stable, continue meds same and refill as needed Assessment & Plan (02/01/2021 4:46 PM SAND MIXER MACHINE): Will refer to pulmonology for further evaluation [...] needed. Assessment & Plan (05/12/2021 5:08 PM SAND MIXER MACHINE): Stable, continue meds same and refill as needed Assessment & Plan (06/08/2020 5:21 PM CDT): Continue medication at this time. Condition is stable. Assessment & Plan (05/08/2020 11:50 AM SAND MIXER MACHINE): Will start on lexapro daily. Advised not stopping abruptly. Makes pact to report to er if having s/h ideations. Has employee counseling at [facility] - will pursue. Advised her to contact police if being threatened or in dangerous situation. Fatigue 03/31/2020 Assessment & Plan (03/31/2020 3:06 PM SAND MIXER MACHINE): Will evaluate further with labs, will notify of results as available Tachycardia 03/31/2020 Assessment & Plan (06/08/2020 5:22 PM CDT): She will complete testing as ordered by manager of health. Assessment & Plan (05/08/2020 11:50 AM SAND MIXER MACHINE): We reviewed holter monitor, discussed beta alphonso pending response to anxiety treatment. Will keep appt with cardiology as planned. Assessment & Plan (03/31/2020 3:05 PM SAND MIXER MACHINE): Will evaluate with labs and holter monitor. Will notify her of results as available. Hemorrhoids 03/31/2020 Assessment & Plan (03/31/2020 3:06 PM SAND MIXER MACHINE): Will refer to gi to discuss surgical treatment Breast lump in female 04/15/2019 Abnormal findings on diagnostic imaging of breas t 04/15/2019 Laceration of perineum in female 02/01/2019 Migraine 10/11/2017 Seasonal allergies 02/17/2016 Assessment & Plan (10/27/2021 2:17 PM CDT): Stable, continue medication the same at this time and refill as needed. Assessment & Plan (03/31/2020 3:06 PM SAND MIXER MACHINE): Will use flonase, hira, and add singulair [...] 11:37 AM CDT): She will go to [facility] today for labs. Will notify her of [...] 06/09/19 Assessment & Plan (05/08/2020 11:07 AM SAND MIXER MACHINE): Weight/BMI is in healthy range. Continue healthy lifestyle to maintain. Encounter to establish care 03/31/2020 02/01/2021 Assessment & Plan (03/31/2020 3:05 PM SAND MIXER MACHINE): Labs entered, will notify of results as available Thyromegaly 03/31/2020 05/08/2020 Assessment & Plan (03/31/2020 3:05 PM SAND MIXER MACHINE): Will evaluate with labs and thyroid US [...] on file Legal Sex Female 5:55 AM SAND MIXER MACHINE Gender Identity Not on file Sexual Orientation [...] CDT Respiratory Rate 16 04/13/2022 9:12 AM SAND MIXER MACHINE Oxygen Saturation 99% 11/16/2023 3:27 PM CDT [...] a test for HCV RNA (test code 04986) is suggested. For additional information please refer to http://education.PeopleAdmin.KitNipBox/faq/JHG67c3 (This link is being provided for informational/ educational purposes only.) Blood specimen (specimen) 08/14/2020 11:33 AM CDT 08/14/2020 11:35 AM CDT Narrative [facility] - 08/17/2020 2:20 PM CDT FASTING:NO FASTING: NO [facility] MICROBI[facility] - GENERAL ORDERABLES Final Result [facility] [id number] [phone] from Last 3 Months or Most Recently Relevant to Health Maintenance Insurance [facility] Care Teams Linoleum Installer Relationship Specialty Start Date End Date Madeleine Montano NP [address] [place] [id number] PCP - General Internal Medicine 05/16/22
[2024-08-06 08:54] VITALS: BP 109/72; PULSE 78; RESP 16; O2SAT 100
== END 2024-08-06 08:56 | disposition home or self-care (01) ==
LOC: ANHED 08:42
PROVIDERS: Emergency Provider Emergency Medicine
DX: S16.1XXA Strain of muscle, fascia and tendon at neck level, initial encounter (principal); X58.XXXA Exposure to other specified factors, initial encounter
CPT/HCPCS: 72125; 96372; 99284; A9270; J1885